=== PATIENT | female | born 1990 | race Caucasian/White ===

== ENCOUNTER 2016-02-20 09:59 | Observation (INO) ==
[2016-02-20 11:11] LABS: Basophils # 0.1 10*3/uL (0.0-0.2); Basophils % 0.3 % (0.0-0.8); Eosinophils # 0.1 10*3/uL (0.0-0.87); Eosinophils % 0.5 % (0.00-10.9); Hematocrit 27.4 VOL% (35.7-47.0); Hemoglobin 8.9 GM/DL (12.0-16.0); Immature Granulocytes % 0.5 %; Immature Granulocytes Absolute 0.08 #; Lymphocytes # 2.2 10*3/uL (1.4-4.0); Lymphocytes % 14.5 % (21.3-54.2); Mean Corpuscular HGB Conc 32.5 GM/DL (32-36); Mean Corpuscular Hemoglobin 29 PG (27-34); Mean Corpuscular Volume 89.3 FL (87-102); Mean Platelet Volume 10.3 FL (9.6-12.0); Monocytes # 0.7 10*3/uL (0.11-0.8); Monocytes % 4.7 % (1.7-12.7); Neutrophils # 11.8 10*3/uL (1.4-7.4); Neutrophils % 79.5 % (38.7-73.9); Platelet Count 109 10*3/uL (130-400); Red Blood Count 3.07 10*6/uL (3.8-5.5); Red Cell Distribution Width 13.4 % (9.3-17.3); White Blood Count 14.9 10*3/uL (4.5-13.71)
[2016-02-20] MEDS ORDERED: SODIUM CHLORIDE 0.9% 1,000 ML IV STA (11:17)
[2016-02-20 11:21] LABS: Amorphous Crystals,Urine Occasional /HPF (Few); Bacteria,Urine Occasional /HPF (Few); Blood, Urine Negative (Negative); Glucose,Urine (UA) Negative (Negative); Hyaline Casts,Urine 5 /LPF (0-3); Ketones,Urine 5 mg/dL (Negative); Mucus,Urine Many /LPF (Occasional); Nitrite,Urine Negative (Negative); Protein,Urine 100 MG/DL; RBC,Urine 1 /HPF (0-4); Squamous Epithelial Cell,Urine Occasional /HPF (0-10); Urine Color Amber (Yellow); Urine Specific Gravity 1.028 (1.001-1.035); Urine Urobilinogen < 2.0 EU/DL (0.2-1.0); WBC,Urine 2 /HPF (0-6)
[2016-02-20 11:22] LABS: Apearance,Urine Slightly Hazy (Clear); Bilirubin,Urine Small mg/dL (Negative)
--- NOTE | 2016-02-20 11:33 | Emergency Department Note ---
Mamadou Tai Meredith, am scribing for, and in the presence of, Levon Knutson MD 11: 17. Zenia Tai James D, MD, personally performed the services described in this documentation, ascribed by Briana Cedillo in my presence, and it is both accurate and complete . Arrival - Arrival Chief Complaint: Urogenital - Female Stated Complaint: Vaginal Bleed ED Nursing Triage Note: Patient started taking Latura Control pills 2016, LMP 01/28, and started bleeding heavily with large clots last night, thought she could get to [employer], [facility], [employer], but has complete syncope this morning injuring her left ankle and knee. Patient arrived via EMS , very pale, diaphoretic, B/P 98/67. Mode of Arrival: Stretcher Limitations: No Limitations Source: Patient, EMS, RN Notes Reviewed - History of Present Illness HPI Narrative: Pt is a 25 y/o white female brought to the ED by EMS with c/o heavy vaginal bleeding with clots which onset last night. She states she has completely saturated 10 pads since 2129 last night. Pt had a Pap on 02/15/15 and states it was very painful. She started taking Latura control on 02/18/16. Her LNMP was 01/28/17. Pt tired to go to see her [employer] but she had a syncopal episode this morning at 0930 causing her to injure her left ankle and left knee. EMS report that pt was pale and diaphoretic. Her blood pressure at the time of triage was 98/67. Pt has a history of HTN. 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 Onset (ago): hour(s) Date of Last Menstrual Period: 01/29/2016 Allergies/Adverse Reactions: Allergies Allergy/AdvReac Type Severity Reaction Status Date / Time Amoxicillin Allergy RASH Verified 06/11/15 15:55 Home Medications: Home Medications Medication Instructions Recorded Confirmed Type Levonorgestrel-Ethin Estradiol 1 each PO DAILY 02/20/16 02/20/16 History [Lutera-28 Tablet] Review of System - Review of System ROS unobtainable: due to endotracheal tube 12 point system: reviewed and no additional remarkable complaints except as stated - Review of System Constitutional: Present: as per HPI, diaphoresis Cardiovascular: Present: as per HPI, syncope, other (hypotension) Genitourinary female: Present: as per HPI, other (heavy vaginal bleeding with clots) Musculoskeletal: Present: as per HPI, leg pain (left knee and left ankle pain ) Skin: Present: as per HPI, other (pallor ) Medical,Surgical,& Family Hx - Medical History Cardio: History of: Hypertension (no medication) - Surgical History Reproductive Surgeries: Patient denies;: Hysterectomy - Family History Family History: Denies;: Additional Family History - Social History Smoking Status: Never smoker Frequency of Alcohol Use: None Type of Drug Use: None Exam Physical Examination: GENERAL: This is an obese white female in no apparent distress. VITAL SIGNS: Temperature: 98.5, Pulse: 93, Respirations: 25, Blood pressure: 98/ 67, O2 Saturation: 99 HEENT: Head is normocephalic and atraumatic. Pupils are equally round and reactive to light. Extraocular movement are intact. Pale conjunctiva. Oropharynx is benign with moist mucous membranes. NECK: Neck is soft and supple without tenderness. There are no masses. There is no lymphadenopathy. LUNGS: Lungs are clear to auscultation bilaterally. Chest rises symmetrically. There is no chest wall tenderness. CV: Heart is regular rate and rhythm without murmurs, rubs, or gallops. ABDOMEN: Abdomen is soft, non-tender to palpation. There are no abnormal masses palpated. There is no organomegaly. Bowel sounds are present and active. Pelvic exam: Minimal blood is present on the perineum. There is no blood from the vaginal vault or introitus. SKIN: Skin is warm and dry. Pallor noted. EXTREMITIES: Patient has full range of motion without tenderness. There is no pedal edema. NEUROLOGIC: Awake, alert, and oriented x4. Cranial nerves II through XII are grossly intact. There are no motorsensory deficits. PSYCHIATRIC: Normal affect. Normal mood. Vital Signs: Vital Signs Temperature 98.4 F 02/21/16 16:00 Pulse Rate 90 02/21/16 16:00 Respiratory Rate 20 02/21/16 16:00 Blood Pressure 124/68 02/21/16 16:00 O2 Sat by Pulse Oximetry 100 02/21/16 16:00 Course - Consultations Consultation #1: Discussed with Dr. Ferris. Patient will be admitted to her service. Initial orders written for her. Results - Labs CBC & BMP: 02/21/16 15:44 Lab Results: I have reviewed the patients labs Labs: Laboratory Tests 02/20/16 02/20/16 10:29 10:29 WBC 14.9 H Hgb 8.9 L Hct 27.4 L Plt Count 109 L Urine RBC 1 Urine WBC 2 Urine Test Negative Only lab from 02/20/2016 is to be considered for the purposes of this note. Labs from any other date in this note have been placed there automatically by the electronic medical record. Disposition Clinical Impression: Vaginal bleeding, Syncope Case discussed with: patient Disposition: Still a Patient Condition: Stable
--- NOTE | 2016-02-20 13:01 | XRay Report ---
XR ankle 2V LT Indication: Pain Comparison: None available Findings: No evidence of fracture seen. The alignment of the joints appears normal. No degenerative change is present. No soft tissue abnormality is seen. Impression: No evidence of abnormality demonstrated PROCEDURE INTERPRETED AT [facility] DEPARTMENT OF RADIOLOGY Final Report Signed by: Dr. Real Tan
--- NOTE | 2016-02-20 13:01 | XRay Report ---
XR knee 2V LT Indication: Pain Comparison: None available Findings: No evidence of fracture seen. The alignment of the joints appears normal. No degenerative change is present. No soft tissue abnormality is seen. Impression: No evidence of abnormality demonstrated PROCEDURE INTERPRETED AT [facility] DEPARTMENT OF RADIOLOGY Final Report Signed by: Dr. Real Tan
--- NOTE | 2016-02-20 13:55 | CT Report ---
CT cervical spine Indication: Neck pain after injury Comparison: None available Technique: Axial CT imaging of the cervical spine is performed without contrast. Computer reformatting is viewed in the sagittal and coronal planes. Findings: No fracture is seen. Alignment of the cervical spine is within normal limits. Vertebral body heights are normal. No other abnormality is demonstrated. Impression: No evidence of abnormality demonstrated PROCEDURE INTERPRETED AT [facility] DEPARTMENT OF RADIOLOGY Final Report Signed by: Dr. Real Tan
--- NOTE | 2016-02-20 13:55 | CT Report ---
CT brain Indication: Headache, syncope Comparison: None available Technique: Axial CT imaging of the brain is performed without contrast with 3 mm increments. Findings: No evidence of hemorrhage, mass mass effect midline shift or acute infarct seen. The brain parenchyma attenuation and differentiation appears within normal limits. The ventricles and cisterns are normal in caliber. No cranial or skull base abnormality is identified. Impression: No evidence of abnormality demonstrated. PROCEDURE INTERPRETED AT [facility] DEPARTMENT OF RADIOLOGY Final Report Signed by: Dr. Real Tan
--- NOTE | 2016-02-20 14:07 | Ultrasound Report ---
Exam: US transvaginal Date: 02/20/2016 12:44 PM Comparison: None Indication: Vaginal bleeding Technique: Multiple transabdominal real-time scans were obtained of the pelvis. There is limited evaluation the uterus and ovaries a transvaginal scans were obtained. Color flow scans obtained with ultrasound images captured and stored. Findings: The uterus is anteverted in its position and measures 65 x 36 x 44 mm. The endometrial stripe measures 12.6 mm. Right ovary measures 34 x 34 x 16 mm. Left ovary measures 29 x 20 x 13 mm and contains small follicles with color flow documented. No adnexal mass or free fluid. Impression: The endometrial stripe measures 12.6 mm with inhomogeneous echogenicity which can be seen with possible hemorrhage. It is difficult to exclude hyperplasia, polyps, etc. Followup is recommended. PROCEDURE INTERPRETED AT [facility] DEPARTMENT OF RADIOLOGY Final Report Signed by: Dr. Alley Riggs
[2016-02-20] MEDS ORDERED: ONDANSETRON 4 MG/2 ML VIAL IV PRN (14:37)
[2016-02-20] MEDS ORDERED: IBUPROFEN 800 MG TABLET PO PRN (14:37)
[2016-02-20] MEDS ORDERED: MAGNESIUM HYDROXIDE SUSP 30 ML UDCUP PO PRN (14:37)
[2016-02-20] MEDS ORDERED: BISACODYL 10 MG SUPP RECTAL PRN (14:37)
[2016-02-20] MEDS: ACETAMINOPHEN 325 MG TABLET PO PRN (15:31)
[2016-02-20] MEDS: LACTATED RINGERS 1,000 ML IV SCH (20:06)
[2016-02-20] MEDS: DOCUSATE SODIUM 100 MG CAPSULE PO SCH (20:07)
[2016-02-21] MEDS: LACTATED RINGERS 1,000 ML IV SCH (04:38)
[2016-02-21 05:59] LABS: Basophils % 0.2 % (0.0-0.8); Eosinophils # 0.3 10*3/uL (0.0-0.87); Eosinophils % 1.7 % (0.00-10.9); Hematocrit 23.2 VOL% (35.7-47.0); Hemoglobin 7.5 GM/DL (12.0-16.0); Immature Granulocytes % 0.7 %; Immature Granulocytes Absolute 0.11 #; Lymphocytes # 3.9 10*3/uL (1.4-4.0); Lymphocytes % 23.8 % (21.3-54.2); Mean Corpuscular HGB Conc 32.3 GM/DL (32-36); Mean Corpuscular Hemoglobin 29 PG (27-34); Mean Corpuscular Volume 88.2 FL (87-102); Monocytes % 6.2 % (1.7-12.7); Neutrophils # 10.9 10*3/uL (1.4-7.4); Neutrophils % 67.4 % (38.7-73.9); Platelet Count 273 10*3/uL (130-400); Red Blood Count 2.63 10*6/uL (3.8-5.5); Red Cell Distribution Width 13.8 % (9.3-17.3); White Blood Count 16.2 10*3/uL (4.5-13.71)
--- NOTE | 2016-02-21 07:06 | OB/GYN Progress Note ---
Assessment and Plan (1) Menorrhagia with irregular cycle Status: Acute Current Visit: Yes (2) Anemia Status: Acute Assessment and plan: 1. Pt. counseled regarding symptomatic anemia and offered a blood transfusion. Risk/benefits/alternatives discussed and Pt. agreed and 2 units of PRBCs administered 2. cont. ferrous sulfate 325mg a day at home 3. on pelvic exam no vaginal bleeding noted, pt to f/u in the clinic on 03/03/16 @ 345pm Current Visit: Yes PRODUCTION OPERATOR - PN: Subj Interval history: Pt. 25y/o who presented to the ER after a syncopal episode. Pt. states that prior she had just started taking control pills and on day 2 of her pack she experienced heavy vaginal bleeding passing large blood clots. Pt. also complained of abdominal pain at the start of her cycle. Pt. gives hx of irregular periods occuring every 6 wks. Pt. currently without any vaginal bleeding or abdominal pain. Pt was alone when she fell and when she awoke her leg and ankle were hurting. Pt. denies any chest pain or shortness of breath however states she feels light headed when she gets up from the bed. Exam PRODUCTION OPERATOR - Constitutional Vitals: Vital Signs Temp Pulse Resp BP Pulse Ox 02/21/16 05:55 18 02/21/16 04:00 97.7 F 108 H 18 130/70 99 02/20/16 23:50 98.7 F 98 H 18 121/67 99 02/20/16 19:57 98.9 F 114 H 20 129/66 99 02/20/16 15:34 98.2 F 101 H 20 121/66 99 02/20/16 14:30 98.4 F 98 H 20 123/80 99 General appearance: no acute distress - Antepartum / Post Antpartum Exam Vagina: Present: normal moisture Cervix: Present: normal Uterus exam: Present: normal size - Respiratory Respiratory exam: Present: clear to auscultation bilaterally - Cardiovascular Cardiovascular exam: Present: regular rate and rhythm Results - Labs CBC & BMP: 02/21/16 04:54
[2016-02-21] MEDS ORDERED: SODIUM CHLORIDE 0.9% 250 ML IV PRN (07:24)
[2016-02-21] MEDS: ACETAMINOPHEN 325 MG TABLET PO PRN (10:38)
[2016-02-21] MEDS: DOCUSATE SODIUM 100 MG CAPSULE PO SCH (10:39)
[2016-02-21 15:58] LABS: Hematocrit 29.3 VOL% (35.7-47.0); Hemoglobin 9.6 GM/DL (12.0-16.0)
[2016-02-21] MEDS ORDERED: INFLUENZA VIRUS VACCINE IM ONE (16:31)
[2016-02-21 17:27] VITALS: BP 124/68
== END 2016-02-21 16:55 | disposition home or self-care (01) ==
LOC: EDUNIT# → EDBD → N.ED 09:59 → N.EDINP 09:59 → N.OB 13:15
PROVIDERS: ADMIT Obstetrics & Gynecology; ATTEND Obstetrics & Gynecology